=== PATIENT | male | born 2000 | race Caucasian/White ===

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

== ENCOUNTER 2021-01-13 12:00 | Emergency (ER) | payer MEDICAID ==
[~2021-01-13] VITALS: Ht 190.5 cm; Wt 187.0 kg
--- NOTE | 2021-01-13 12:30 | NUR ---
Pt brought to unit from Triage. Pt belongings collected and placed at nurses station. Pt is now talking to HUA Torres from ED.
--- NOTE | 2021-01-13 12:45 | NUR ---
Pt is denying SI or a plan. He reports, "I'm depressed." Pt is waiting to be seen by [facility] applier.
[2021-01-13 13:56] LABS: BASOPHILS % (AUTO) 0.4 % (0-1); EOSINOPHILS # (AUTO) 0.3 X10'3 (0-0.9); EOSINOPHILS % (AUTO) 2.5 % (0-6); HEMATOCRIT 41.9 % (42.0-52.0); LYMPHOCYTES % (AUTO) 29.6 % (21-51); MEAN CORPUSCULAR HEMOGLOBIN 27.5 PG (27.0-31.0); MEAN CORPUSCULAR HGB CONC 33.3 g/dL (33.0-36.5); MEAN CORPUSCULAR VOLUME 82.6 FL (78-98); MEAN PLATELET VOLUME 8.3 FL (7.4-10.4); MONOCYTES # (AUTO) 0.7 X10'3 (0-0.9); MONOCYTES % (AUTO) 7.1 % (2-12); NEUTROPHILS # (AUTO) 6.1 X10'3 (1.8-7.7); NEUTROPHILS % (AUTO) 60.4 % (42-75); PLATELET COUNT 331 X10'3 (140-440); RED BLOOD COUNT 5.08 X10'6 (4.70-6.10); RED CELL DISTRIBUTION WIDTH 14.7 % (11.5-14.5)
--- NOTE | 2021-01-13 14:00 | NUR ---
Pt is upset over being here and wants to go home. He states, "I came here to talk to someone." "I am only depressed."
[2021-01-13 14:10] LABS: CLARITY,URINE SLIGHTLY CLOUDY (Clear); COLOR,URINE YELLOW (Yellow); UA COLLECTION TYPE NON-SPECIFIED
[2021-01-13 14:11] LABS: ALANINE AMINOTRANSFERASE 74 U/L (12-78); ALBUMIN 4.1 G/DL (3.4-5.0); ALKALINE PHOSPHATASE 104 IU/L (46-116); ANION GAP 11 (8-16); ASPARTATE AMINO TRANSFERASE 41 U/L (10-37); BILIRUBIN,TOTAL 0.5 MG/DL (0.1-1.0); BLOOD UREA NITROGEN 15 MG/DL (7-18); BUN/CREATININE RATIO 13.8 (5.4-32.0); CALCIUM 9.6 MG/DL (8.5-10.1); CHLORIDE 105 MMOL/L (99-107); CREATININE 1.09 MG/DL (0.60-1.10); GLUCOSE 83 MG/DL (70-104); GLUCOSE, URINE NEGATIVE (Neg); KETONES,URINE NEGATIVE (Neg); LEUKOCYTE ESTERASE ,URINE NEGATIVE (Neg); NITRITES, URINE NEGATIVE (Neg); OCCULT BLOOD,URINE NEGATIVE (Neg); PH,URINE 6.5 (4.8-8.0); POTASSIUM 4.2 MMOL/L (3.5-5.1); PROTEIN,URINE NEGATIVE (Neg); SODIUM 141 MMOL/L (135-145); TOTAL PROTEIN 8.3 G/DL (6.4-8.2); URINE AMPHETAMINE SCREEN NEGATIVE (Neg); URINE BARBITUATE SCREEN NEGATIVE (Neg); URINE BENZODIAZEPINES SCREEN NEGATIVE (Neg); URINE CANNABINOID SCREEN POSITIVE (Neg); URINE COCAINE SCREEN NEGATIVE (Neg); URINE METHADONE SCREEN NEGATIVE (Neg); URINE OPIATE SCREEN NEGATIVE (Neg); URINE PHENCYCLIDINE SCREEN NEGATIVE (Neg); UROBILINOGEN,URINE 0.2 E.U/dL (0.2-1.0); eGFR 85 ML/MIN
[2021-01-13 14:16] LABS: BACTERIA,URINE NONE SEEN /HPF (Neg); MUCUS STRANDS NONE SEEN /LPF (Neg); RBC,URINE 0-2 /HPF (0-2); SQUAMOUS EPITHELIAL CELL,UR MODERATE /LPF (FEW); WBC,URINE 0-4 /HPF (0-4)
[2021-01-13 14:21] LABS: ETHANOL < 0.010 GM/DL (0.0-0.010)
[2021-01-13 17:29] VITALS: BP 136/70
--- NOTE | 2021-01-13 18:00 | NUR ---
Pt seen by [facility] and discharged. All his belongings are with him and he was escorted to the lobby to wait for a family member to pick him up and take him home. Pt left here in good spirits thanking the staff.
[2021-01-13] MEDS ORDERED: risperiDONE 0.5mg tablet PO SCH (21:00)
[2021-01-13] MEDS ORDERED: lithium carbonate 150mg capsule PO SCH (21:00)
== END 2021-01-13 18:04 ==
LOC: ER 12:01
DX: F32.9 Major depressive disorder, single episode, unspecified (principal)
CPT/HCPCS: 36415; 80053; 80305; 80320; 81001; 84443; 85025; 99285